=== PATIENT | male | born 1985 | race Caucasian/White ===

== ENCOUNTER 2020-05-07 09:45 | Day surgery (SDC) | payer OTHER, SELFPAY ==
[~2020-05-07] VITALS: Ht 170.2 cm; Wt 104.3 kg
[~2020-05-07 09:45] MED LIST: BUPIVACAINE-MPF/EPI 0.25% 30 ML VIAL INJ ONE; GELATIN SPONGE 100 1 SPG TP ONE; LIDOCAINE 1% 500 MG/50 ML VIAL ONE
[2020-05-07] MEDS ORDERED: ROCURONIUM 50 MG/5 ML VIAL IV ONE (11:20)
[2020-05-07] MEDS ORDERED: ceFAZolin 1,000 MG VIAL ONE (11:20)
[2020-05-07] MEDS ORDERED: SEVOFLURANE 250 ML BTL INH ONE (11:20)
[2020-05-07] MEDS ORDERED: NEOSTIGMINE 1:1000 10 MG/10 ML VIAL ONE (11:20)
[2020-05-07] MEDS ORDERED: PROPOFOL 200 MG/20 ML VIAL IV ONE (11:20)
[2020-05-07] MEDS ORDERED: GLYCOPYRROLATE 0.2 MG/ML VIAL ONE (11:20)
[2020-05-07] MEDS ORDERED: MIDAZOLAM 2 MG/2 ML VIAL ONE (11:20)
[2020-05-07] MEDS ORDERED: fentaNYL citrate 0.05 MG/ML VIAL ONE (11:20)
[2020-05-07] MEDS ORDERED: KETOROLAC 30 MG/ML VIAL IVP SCH (12:10)
[2020-05-07] MEDS ORDERED: LACTATED RINGERS 1,000 ML IV SCH (12:32)
[2020-05-07] MEDS ORDERED: HYDROmorphone 1 MG/ML AMP IVP PRN (12:35)
[2020-05-07] MEDS ORDERED: MEPERIDINE 25 MG/ML SYR IVP PRN (12:35)
[2020-05-07] MEDS ORDERED: ONDANSETRON 4 MG/2 ML VIAL IVP PRN (12:35)
[2020-05-07] MEDS ORDERED: diphenhydrAMINE 50 MG/ML VIAL IVP PRN (12:35)
== END 2020-05-07 14:15 | disposition home or self-care (01) ==
LOC: MDS 09:45 → MMU 09:46 → MDS 14:15
PROVIDERS: ATTEND Surgery
DX: K60.3 Anal fistula (principal); L72.3 Sebaceous cyst; Z11.59 Encounter for screening for other viral diseases; H93.8X1 Other specified disorders of right ear
CPT/HCPCS: 11404; 12032; 46020; 69110; 71045; 88304; 88305; J0690; J2001; J2250; J2704; J2710; J3010; J3490; J7060; J7120; U0003

== ENCOUNTER 2020-07-09 07:31 | Day surgery (SDC) | payer OTHER, SELFPAY ==
[~2020-07-09] VITALS: Ht 170.2 cm; Wt 104.3 kg
[2020-07-09] MEDS ORDERED: LIDOCAINE 1% 500 MG/50 ML VIAL ONE (08:27)
[2020-07-09] MEDS ORDERED: BUPIVACAINE-MPF/EPI 0.25% 30 ML VIAL INJ ONE (08:28)
[2020-07-09] MEDS ORDERED: HYDROGEN PEROXIDE 3% 240 ML BTL TP ONE (09:24)
[2020-07-09] MEDS ORDERED: PROPOFOL 200 MG/20 ML VIAL IV ONE (09:30)
[2020-07-09] MEDS ORDERED: METOCLOPRAMIDE 10 MG/2 ML INJ VIAL ONE (09:30)
[2020-07-09] MEDS ORDERED: SUCCINYLCHOLINE CHLORIDE 200 MG/10 ML VIAL IVP ONE (09:30)
[2020-07-09] MEDS ORDERED: ROCURONIUM 50 MG/5 ML VIAL IV ONE (09:30)
[2020-07-09] MEDS ORDERED: GLYCOPYRROLATE 0.2 MG/ML VIAL ONE (09:30)
[2020-07-09] MEDS ORDERED: ONDANSETRON 4 MG/2 ML VIAL ONE (09:30)
[2020-07-09] MEDS ORDERED: NEOSTIGMINE 1:1000 10 MG/10 ML VIAL ONE (09:30)
[2020-07-09] MEDS ORDERED: LIDOCAINE MPF 2% 100 MG/5 ML VIAL INJ ONE (09:30)
[2020-07-09] MEDS ORDERED: fentaNYL citrate 0.05 MG/ML VIAL ONE (09:30)
[2020-07-09] MEDS ORDERED: SEVOFLURANE 250 ML BTL INH ONE (09:30)
[2020-07-09] MEDS ORDERED: LACTATED RINGERS 1,000 ML IV SCH (10:28)
[2020-07-09] MEDS ORDERED: MEPERIDINE 25 MG/ML SYR IVP PRN (10:30)
[2020-07-09] MEDS ORDERED: ONDANSETRON 4 MG/2 ML VIAL IVP PRN (10:30)
[2020-07-09] MEDS ORDERED: oxyCODONE/APAP 5/325 MG 1 TAB TAB PO PRN (10:30)
[2020-07-09] MEDS ORDERED: HYDROmorphone 1 MG/ML AMP IVP PRN (10:30)
[2020-07-09] MEDS ORDERED: diphenhydrAMINE 50 MG/ML VIAL IVP PRN (10:30)
== END 2020-07-09 11:50 | disposition home or self-care (01) ==
LOC: MFCC 07:31 → MOR 07:31 → MFCC 07:34 → MOR 11:50
PROVIDERS: ATTEND Surgery
DX: K60.3 Anal fistula (principal); Z20.828 Contact with and (suspected) exposure to other viral communicable diseases
CPT/HCPCS: 46275; J0330; J2001; J2405; J2704; J2710; J2765; J3010; J3490; J7120; U0003